=== PATIENT | male | born 1965 | race African-American/Black ===

== ENCOUNTER 2018-11-10 16:36 | Emergency (ER) | payer MEDICAID ==
[~2018-11-10] VITALS: Ht 188 cm; Wt 90.0 kg
[2018-11-10] MEDS ORDERED: NAPR-58 PO (17:00)
[2018-11-10] MEDS ORDERED: KETOROLAC TROMETHAMINE 30 MG/ML VIAL IM ONE (18:00)
[2018-11-10 19:51] VITALS: BP 116/68
== END 2018-11-10 19:51 | disposition home or self-care (01) ==
LOC: EMS 16:37
DX: S83.91XA Sprain of unspecified site of right knee, initial encounter (principal); I10 Essential (primary) hypertension; X58.XXXA Exposure to other specified factors, initial encounter; Y93.89 Activity, other specified; Y92.89 Other specified places as the place of occurrence of the external cause; Y99.8 Other external cause status
CPT/HCPCS: 73562; 96372; 99283; J1885

== ENCOUNTER 2019-11-11 18:12 | Emergency (ER) | payer MEDICAID ==
[~2019-11-11] VITALS: Ht 185.4 cm; Wt 93.2 kg
[~2019-11-11 18:12] MED LIST: NAPR-1025 PO
[2019-11-11 18:16] VITALS: BP 155/90
[2019-11-11] MEDS ORDERED: KETOROLAC TROMETHAMINE 30 MG/ML VIAL IM ONE (19:00)
== END 2019-11-11 19:04 | disposition home or self-care (01) ==
LOC: EMS 18:12
DX: S39.012A Strain of muscle, fascia and tendon of lower back, initial encounter (principal); I10 Essential (primary) hypertension; Z98.890 Other specified postprocedural states; X50.9XXA Other and unspecified overexertion or strenuous movements or postures, initial encounter; Y93.89 Activity, other specified; Y92.89 Other specified places as the place of occurrence of the external cause; Y99.8 Other external cause status
CPT/HCPCS: 96372; 99283; J1885

== ENCOUNTER 2020-10-06 12:46 | Inpatient (IN) | payer MEDICAID ==
[~2020-10-06] VITALS: Ht 185.4 cm; Wt 83.0 kg
[2020-10-06] MEDS ORDERED: ACETAMINOPHEN 650 MG/20.3 ML SOLUTION UDCUP PO PRN (15:45)
[2020-10-06] MEDS ORDERED: IBUPROFEN 600 MG TABLET PO PRN (15:45)
[2020-10-06 15:58] VITALS: BP 114/58
[2020-10-06] MEDS: OxyCODONE HCL 10 MG IR TABLET PO PRN (15:58)
[2020-10-06] MEDS: RIVAROXABAN 15 MG TABLET PO SCH (17:55)
[2020-10-06] MEDS: DOCUSATE SODIUM 100 MG CAPSULE PO SCH (21:05)
[2020-10-06] MEDS: SENNA 187 MG TABLET PO SCH (21:05)
[2020-10-07] VITALS: BP 97/58
[2020-10-07 06:22] VITALS: BP 108/57
[2020-10-07 07:26] VITALS: BP 103/56
[2020-10-07] MEDS: DOCUSATE SODIUM 100 MG CAPSULE PO SCH ×2 (08:05→20:40)
[2020-10-07] MEDS: RIVAROXABAN 15 MG TABLET PO SCH ×2 (08:06→17:32)
[2020-10-07 08:36] LABS: BASOPHILS % (AUTO) 0.5 % (0.0-2.0); EOSINOPHILS % (AUTO) 4.3 % (1.0-6.0); HEMATOCRIT 28.3 % (41-53); HEMOGLOBIN 9.4 g/dL (13.5-17.5); LYMPHOCYTES # (AUTO) 1.3 K/uL (1.0-4.8); LYMPHOCYTES % (AUTO) 20.4 % (22.0-44.0); MEAN CORPUSCULAR HEMOGLOBIN 30.3 pg (26.0-34.0); MEAN CORPUSCULAR HGB CONC 33.1 G/dL (31.0-37.0); MEAN CORPUSCULAR VOLUME 91 fL (80-100); MONOCYTES # (AUTO) 0.4 K/uL (0.1-1.0); MONOCYTES % (AUTO) 6.4 % (2.0-9.0); NEUTROPHILS # (AUTO) 4.4 K/uL (1.8-7.7); NEUTROPHILS % (AUTO) 68.4 % (40.0-70.0); PLATELET COUNT (AUTO) 642 K/uL (150-450); RED BLOOD CELL COUNT(AUTO) 3.09 MIL/uL (4.50-5.90); RED CELL DISTRIBUTION WIDTH 12.5 % (11.5-14.5)
[2020-10-07 08:51] LABS: ALANINE AMINOTRANSFERASE 30 U/L (12-78); ALBUMIN 2.5 g/dL (3.4-5.0); ALKALINE PHOSPHATASE 99 U/L (46-116); ANION GAP 9 mmol/L (8-16); ASPARTATE AMINOTRANSFERASE 30 U/L (15-37); BILIRUBIN,TOTAL 0.5 mg/dL (0.1-1.0); CALCIUM, TOTAL 8.6 mg/dL (8.8-10.5); CARBON DIOXIDE 25 mmol/L (22-29); CHLORIDE 100 mmol/L (98-107); CREATININE 1.11 mg/dL (0.60-1.30); GLOMERULAR FILTR. RATE CALC > 60 mL/min (>60); GLUCOSE,RANDOM 115 mg/dL (70-110); POTASSIUM 4.4 mmol/L (3.5-5.1); SODIUM SERUM 134 mmol/L (136-145); TOTAL PROTEIN, SERUM 7.4 g/dL (6.4-8.2); UREA NITROGEN, BLOOD 17 mg/dL (7-18)
[2020-10-07] MEDS: OxyCODONE HCL 10 MG IR TABLET PO PRN ×2 (09:51→13:40)
[2020-10-07 09:52] VITALS: BP 119/87
[2020-10-07 09:53] VITALS: BP 83/57
[2020-10-07 16:22] VITALS: BP 110/64
[2020-10-07] MEDS: ACETAMINOPHEN 325 MG TABLET PO PRN (20:02)
[2020-10-07] MEDS: SENNA 187 MG TABLET PO SCH (20:40)
[2020-10-08] VITALS: BP 101/66
[2020-10-08 07:12] VITALS: BP 103/66
[2020-10-08] MEDS: RIVAROXABAN 15 MG TABLET PO SCH ×2 (08:30→16:20)
[2020-10-08] MEDS: OxyCODONE HCL 5 MG IR TABLET PO PRN (08:30)
[2020-10-08] MEDS: DOCUSATE SODIUM 100 MG CAPSULE PO SCH ×2 (08:30→20:19)
[2020-10-08] MEDS ORDERED: SODIUM CHLORIDE 0.9% 100 ML ONE (11:20)
[2020-10-08] MEDS ORDERED: IOVERSOL 350 MG/ML 100 ML VIAL ONE (11:20)
[2020-10-08 11:24] LABS: BASOPHILS % (AUTO) 0.4 % (0.0-2.0); EOSINOPHILS % (AUTO) 3.7 % (1.0-6.0); HEMATOCRIT 31.1 % (41-53); HEMOGLOBIN 10.3 g/dL (13.5-17.5); LYMPHOCYTES # (AUTO) 1.9 K/uL (1.0-4.8); LYMPHOCYTES % (AUTO) 25.1 % (22.0-44.0); MEAN CORPUSCULAR VOLUME 91 fL (80-100); MONOCYTES # (AUTO) 0.4 K/uL (0.1-1.0); MONOCYTES % (AUTO) 4.6 % (2.0-9.0); NEUTROPHILS # (AUTO) 5.1 K/uL (1.8-7.7); NEUTROPHILS % (AUTO) 66.2 % (40.0-70.0); PLATELET COUNT (AUTO) 745 K/uL (150-450); RED BLOOD CELL COUNT(AUTO) 3.42 MIL/uL (4.50-5.90); RED CELL DISTRIBUTION WIDTH 12.8 % (11.5-14.5)
[2020-10-08 12:02] LABS: CREATINE KINASE, TOTAL ONLY 187 U/L (39-308)
[2020-10-08] MEDS: ACETAMINOPHEN 325 MG TABLET PO PRN (13:25)
[2020-10-08] MEDS: CYCLOBENZAPRINE HCL 10 MG TABLET PO PRN (14:28)
[2020-10-08 15:04] LABS: ANION GAP 16 mmol/L (8-16); CALCIUM, TOTAL 9.4 mg/dL (8.8-10.5); CARBON DIOXIDE 19 mmol/L (22-29); CHLORIDE 99 mmol/L (98-107); CREATININE 1.13 mg/dL (0.60-1.30); GLOMERULAR FILTR. RATE CALC > 60 mL/min (>60); GLUCOSE,RANDOM 116 mg/dL (70-110); POTASSIUM 4.6 mmol/L (3.5-5.1); SODIUM SERUM 134 mmol/L (136-145); UREA NITROGEN, BLOOD 19 mg/dL (7-18)
[2020-10-08 15:09] LABS: ALANINE AMINOTRANSFERASE 39 U/L (12-78); ALKALINE PHOSPHATASE 117 U/L (46-116); ASPARTATE AMINOTRANSFERASE 32 U/L (15-37); BILIRUBIN,TOTAL 0.6 mg/dL (0.1-1.0); TOTAL PROTEIN, SERUM 8.4 g/dL (6.4-8.2)
[2020-10-08 15:28] VITALS: BP 103/67
[2020-10-08] MEDS: MELATONIN 3 MG TABLET PO PRN (20:15)
[2020-10-08] MEDS: SENNA 187 MG TABLET PO SCH (20:19)
[2020-10-09] VITALS (7 sets, daily range): BP systolic 67–120; BP diastolic 47–79
[2020-10-09] MEDS ORDERED: SODIUM CL IRRIG SOLN BOTTLE 250 ML IRRIG ONE (07:58)
[2020-10-09] MEDS: RIVAROXABAN 15 MG TABLET PO SCH ×2 (08:06→18:09)
[2020-10-09] MEDS: DOCUSATE SODIUM 100 MG CAPSULE PO SCH ×2 (08:08→20:54)
[2020-10-09] MEDS: ACETAMINOPHEN 325 MG TABLET PO PRN (10:09)
[2020-10-09] MEDS: SENNA 187 MG TABLET PO SCH (20:54)
[2020-10-09] MEDS: MELATONIN 3 MG TABLET PO PRN (23:21)
[2020-10-10] VITALS: BP 103/68
[2020-10-10 07:23] VITALS: BP 107/62
[2020-10-10] MEDS: RIVAROXABAN 15 MG TABLET PO SCH ×2 (08:51→18:41)
[2020-10-10] MEDS: DOCUSATE SODIUM 100 MG CAPSULE PO SCH ×2 (08:52→21:00)
[2020-10-10 15:38] VITALS: BP 120/75
[2020-10-10] MEDS: SENNA 187 MG TABLET PO SCH (21:00)
[2020-10-10 23:18] VITALS: BP 108/62
[2020-10-11 07:18] VITALS: BP 105/61
[2020-10-11] MEDS: RIVAROXABAN 15 MG TABLET PO SCH (08:45)
[2020-10-11] MEDS: DOCUSATE SODIUM 100 MG CAPSULE PO SCH ×2 (08:46→20:25)
[2020-10-11 13:14] LABS: INR 1.2 (0.9-1.1); PROTHROMBIN TIME 12.7 SEC (9.4-11.6)
[2020-10-11] MEDS: WARFARIN SODIUM 5 MG TABLET PO SCH (17:07)
[2020-10-11 18:57] VITALS: BP 109/67
[2020-10-11] MEDS: MELATONIN 3 MG TABLET PO PRN (20:23)
[2020-10-11] MEDS: SENNA 187 MG TABLET PO SCH (20:25)
[2020-10-11 23:00] VITALS: BP 110/68
[2020-10-12 07:35] VITALS: BP 106/61
[2020-10-12] MEDS: DOCUSATE SODIUM 100 MG CAPSULE PO SCH ×2 (08:04→20:10)
[2020-10-12 13:21] LABS: INR 1.1 (0.9-1.1); PROTHROMBIN TIME 11.5 SEC (9.4-11.6)
[2020-10-12 16:17] VITALS: BP 114/68
[2020-10-12] MEDS: OxyCODONE HCL 5 MG IR TABLET PO PRN (18:31)
[2020-10-12] MEDS: WARFARIN SODIUM 5 MG TABLET PO SCH (18:31)
[2020-10-12] MEDS: SENNA 187 MG TABLET PO SCH (20:10)
[2020-10-12 23:15] VITALS: BP 103/61
[2020-10-13 07:21] LABS: INR 1.1 (0.9-1.1); PROTHROMBIN TIME 11.4 SEC (9.4-11.6)
[2020-10-13 07:27] VITALS: BP 93/63
[2020-10-13] MEDS: DOCUSATE SODIUM 100 MG CAPSULE PO SCH ×2 (08:23→20:13)
[2020-10-13] MEDS ORDERED: ENOXAPARIN SODIUM 80 MG/0.8 ML PF SYRINGE SQ SCH (11:45)
[2020-10-13] MEDS: ENOXAPARIN SODIUM 100 MG/ML PF SYRINGE SQ SCH ×2 (12:23→20:36)
[2020-10-13 12:30] LABS: BASOPHILS % (AUTO) 0.4 % (0.0-2.0); EOSINOPHILS % (AUTO) 6.1 % (1.0-6.0); HEMATOCRIT 30.4 % (41-53); HEMOGLOBIN 10.1 g/dL (13.5-17.5); LYMPHOCYTES # (AUTO) 1.7 K/uL (1.0-4.8); LYMPHOCYTES % (AUTO) 27.5 % (22.0-44.0); MEAN CORPUSCULAR HEMOGLOBIN 30.3 pg (26.0-34.0); MEAN CORPUSCULAR HGB CONC 33.3 G/dL (31.0-37.0); MEAN CORPUSCULAR VOLUME 91 fL (80-100); MONOCYTES # (AUTO) 0.5 K/uL (0.1-1.0); MONOCYTES % (AUTO) 8.1 % (2.0-9.0); NEUTROPHILS # (AUTO) 3.5 K/uL (1.8-7.7); NEUTROPHILS % (AUTO) 57.9 % (40.0-70.0); PLATELET COUNT (AUTO) 532 K/uL (150-450); RED BLOOD CELL COUNT(AUTO) 3.35 MIL/uL (4.50-5.90); RED CELL DISTRIBUTION WIDTH 13.1 % (11.5-14.5)
[2020-10-13 12:52] LABS: ANION GAP 5 mmol/L (8-16); CALCIUM, TOTAL 9.2 mg/dL (8.8-10.5); CARBON DIOXIDE 29 mmol/L (22-29); CHLORIDE 98 mmol/L (98-107); CREATININE 1.18 mg/dL (0.60-1.30); GLOMERULAR FILTR. RATE CALC > 60 mL/min (>60); GLUCOSE,RANDOM 94 mg/dL (70-110); SODIUM SERUM 132 mmol/L (136-145); UREA NITROGEN, BLOOD 20 mg/dL (7-18)
[2020-10-13 16:36] VITALS: BP 110/67
[2020-10-13] MEDS: WARFARIN SODIUM 5 MG TABLET PO SCH (17:34)
[2020-10-13 20:09] VITALS: BP 109/66
[2020-10-13] MEDS: MIDODRINE HCL 2.5 MG TABLET PO SCH (20:10)
[2020-10-13] MEDS: SENNA 187 MG TABLET PO SCH (20:13)
[2020-10-13 23:27] VITALS: BP 102/58
[2020-10-14 07:01] LABS: INR 1.1 (0.9-1.1); PROTHROMBIN TIME 11.5 SEC (9.4-11.6)
[2020-10-14] MEDS: DOCUSATE SODIUM 100 MG CAPSULE PO SCH ×2 (08:10→19:48)
[2020-10-14] MEDS: ENOXAPARIN SODIUM 100 MG/ML PF SYRINGE SQ SCH ×2 (08:12→20:11)
[2020-10-14] MEDS: MIDODRINE HCL 2.5 MG TABLET PO SCH (08:12)
[2020-10-14 10:21] VITALS: BP 97/60
[2020-10-14 15:40] VITALS: BP 116/75
[2020-10-14] MEDS: WARFARIN SODIUM 5 MG TABLET PO SCH (18:06)
[2020-10-14] MEDS: SENNA 187 MG TABLET PO SCH (19:48)
[2020-10-14 20:11] VITALS: BP 101/61
[2020-10-14] MEDS: MIDODRINE HCL 5 MG TABLET PO SCH (20:11)
[2020-10-14] MEDS: MELATONIN 3 MG TABLET PO PRN (23:10)
[2020-10-15] VITALS: BP 103/67
[2020-10-15] MEDS: CYCLOBENZAPRINE HCL 10 MG TABLET PO PRN (03:08)
[2020-10-15] MEDS: ENOXAPARIN SODIUM 100 MG/ML PF SYRINGE SQ SCH ×2 (07:51→20:12)
[2020-10-15] MEDS: DOCUSATE SODIUM 100 MG CAPSULE PO SCH ×2 (07:54→20:13)
[2020-10-15] MEDS: MIDODRINE HCL 5 MG TABLET PO SCH ×2 (07:54→20:12)
[2020-10-15 08:56] LABS: INR 1.1 (0.9-1.1)
[2020-10-15 10:45] VITALS: BP 122/72
[2020-10-15 15:41] VITALS: BP 108/72
[2020-10-15] MEDS: WARFARIN SODIUM 5 MG TABLET PO SCH (18:18)
[2020-10-15 20:10] VITALS: BP 111/72
[2020-10-15] MEDS: SENNA 187 MG TABLET PO SCH (20:13)
[2020-10-16] VITALS: BP 115/67
[2020-10-16 08:00] VITALS: BP 113/69
[2020-10-16] MEDS: MIDODRINE HCL 5 MG TABLET PO SCH ×2 (08:25→20:27)
[2020-10-16] MEDS: ENOXAPARIN SODIUM 100 MG/ML PF SYRINGE SQ SCH ×2 (08:26→20:27)
[2020-10-16] MEDS: DOCUSATE SODIUM 100 MG CAPSULE PO SCH ×2 (08:26→20:27)
[2020-10-16] MEDS ORDERED: *CLINICAL-WARFARIN SODIUM DOSING CLINICAL ONE ×2 (10:45→13:00)
[2020-10-16 11:40] LABS: INR 1.4 (0.9-1.1); PROTHROMBIN TIME 14.6 SEC (9.4-11.6)
[2020-10-16 16:32] VITALS: BP 109/67
[2020-10-16] MEDS ORDERED: WARFARIN SODIUM 3 MG TABLET PO ONE (17:00)
[2020-10-16] MEDS ORDERED: WARFARIN SODIUM 5 MG TABLET PO SCH (17:00)
[2020-10-16] MEDS: SENNA 187 MG TABLET PO SCH (20:27)
[2020-10-16] MEDS: MELATONIN 3 MG TABLET PO PRN (20:27)
[2020-10-17] VITALS: BP 107/68
[2020-10-17 07:36] LABS: ANION GAP 7 mmol/L (8-16); CALCIUM, TOTAL 8.6 mg/dL (8.8-10.5); CARBON DIOXIDE 26 mmol/L (22-29); CHLORIDE 102 mmol/L (98-107); CREATININE 1.06 mg/dL (0.60-1.30); GLOMERULAR FILTR. RATE CALC > 60 mL/min (>60); GLUCOSE,RANDOM 101 mg/dL (70-110); SODIUM SERUM 135 mmol/L (136-145); UREA NITROGEN, BLOOD 14 mg/dL (7-18)
[2020-10-17 07:38] LABS: INR 1.6 (0.9-1.1); PROTHROMBIN TIME 16.8 SEC (9.4-11.6)
[2020-10-17 07:54] VITALS: BP 118/72
[2020-10-17] MEDS: DOCUSATE SODIUM 100 MG CAPSULE PO SCH ×2 (09:00→20:04)
[2020-10-17] MEDS: MIDODRINE HCL 5 MG TABLET PO SCH ×2 (09:06→20:04)
[2020-10-17] MEDS: ENOXAPARIN SODIUM 100 MG/ML PF SYRINGE SQ SCH ×2 (09:06→20:04)
[2020-10-17] MEDS ORDERED: *CLINICAL-WARFARIN SODIUM DOSING CLINICAL ONE (09:15)
[2020-10-17 15:13] VITALS: BP 121/73
[2020-10-17] MEDS ORDERED: WARFARIN SODIUM 3 MG TABLET PO ONE (17:00)
[2020-10-17] MEDS: MELATONIN 3 MG TABLET PO PRN (20:04)
[2020-10-17] MEDS: SENNA 187 MG TABLET PO SCH (20:04)
[2020-10-18] VITALS: BP 107/63
[2020-10-18 06:49] LABS: INR 1.9 (0.9-1.1); PROTHROMBIN TIME 19.2 SEC (9.4-11.6)
[2020-10-18 07:17] VITALS: BP 115/72
[2020-10-18] MEDS: DOCUSATE SODIUM 100 MG CAPSULE PO SCH (07:57)
[2020-10-18] MEDS: MIDODRINE HCL 5 MG TABLET PO SCH (07:58)
[2020-10-18] MEDS: ENOXAPARIN SODIUM 100 MG/ML PF SYRINGE SQ SCH (07:58)
[2020-10-18] MEDS ORDERED: DOCU-275 PO (11:11)
[2020-10-18] MEDS ORDERED: MIDO5TAB29 PO (11:11)
[2020-10-18] MEDS ORDERED: WARF5TAB40 PO (11:12)
[2020-10-18] MEDS ORDERED: FLUD.1 PO ×2 (13:56→14:00)
[2020-10-18 14:54] VITALS: BP 113/73
[2020-10-18] MEDS ORDERED: WARFARIN SODIUM 5 MG TABLET PO SCH (17:00)
== END 2020-10-18 17:00 | disposition home health service (06) | DRG 342 ==
LOC: 2WR 14:35
PROVIDERS: ADMIT Physical Medicine & Rehabilitation; ATTEND Physical Medicine & Rehabilitation
DX: S82.141A Displaced bicondylar fracture of right tibia, initial encounter for closed fracture (principal); S62.91XA Unspecified fracture of right hand, initial encounter for closed fracture; S82.831A Other fracture of upper and lower end of right fibula, initial encounter for closed fracture; S62.306A Unspecified fracture of fifth metacarpal bone, right hand, initial encounter for closed fracture; S83.281A Other tear of lateral meniscus, current injury, right knee, initial encounter; I82.4Y1 Acute embolism and thrombosis of unspecified deep veins of right proximal lower extremity; D64.9 Anemia, unspecified; E87.1 Hypo-osmolality and hyponatremia; G47.00 Insomnia, unspecified; E46 Unspecified protein-calorie malnutrition; J98.11 Atelectasis; K59.00 Constipation, unspecified; V29.9XXA Motorcycle rider (driver) (passenger) injured in unspecified traffic accident, initial encounter; Y93.89 Activity, other specified; Y92.89 Other specified places as the place of occurrence of the external cause; Y99.8 Other external cause status; Z83.3 Family history of diabetes mellitus; Z87.891 Personal history of nicotine dependence; Z79.899 Other long term (current) drug therapy; Z68.24 Body mass index [BMI] 24.0-24.9, adult
CPT/HCPCS: 71270; 71275; 87081; 93005; 93971; 97110; 97112; 97116; 97162; 97166; 97530; 97535; 99366; J1650; J7050

== ENCOUNTER 2023-04-22 10:47 | Emergency (ER) | payer MEDICAID ==
[~2023-04-22] VITALS: Ht 185.4 cm; Wt 88.2 kg
[~2023-04-22 10:47] MED LIST changes: +DOCU-385 PO; +FLUD.1 PO; -NAPR-1025 PO; +WARF5TAB9 PO
[2023-04-22 10:48] VITALS: TEMP 98.3
[2023-04-22 11:12] VITALS: BP 156/115; PULSE 76; RESP 16
[2023-04-22] MEDS ORDERED: AMOX1TAB16 PO (11:55)
== END 2023-04-22 12:27 | disposition home or self-care (01) ==
LOC: EMS 10:48
DX: S61.452A Open bite of left hand, initial encounter (principal); I10 Essential (primary) hypertension; W54.0XXA Bitten by dog, initial encounter; Y93.89 Activity, other specified; Y92.89 Other specified places as the place of occurrence of the external cause; Y99.8 Other external cause status
CPT/HCPCS: 99283